=== PATIENT | female | born 1970 | race Caucasian/White ===

== ENCOUNTER 2017-02-28 04:52 | Emergency (ER) | payer OTHER ==
[~2017-02-28] VITALS: Ht 177.8 cm; Wt 61.2 kg
== END 2017-02-28 06:04 | disposition home or self-care (01) ==
LOC: ED 04:52
DX: K29.00 Acute gastritis without bleeding (principal); F10.129 Alcohol abuse with intoxication, unspecified; Y90.2 Blood alcohol level of 40-59 mg/100 ml; Z96.643 Presence of artificial hip joint, bilateral
CPT/HCPCS: 80053; 85025; 96361; 96374; 96375; 99283; G0480; J1885; J2405; J7030